=== PATIENT | female | born 1985 | race Caucasian/White ===

== ENCOUNTER 2025-01-31 18:47 | Observation (INO) ==
[2025-01-31] MEDS: MoRPHine SULFATE 2 MG/ML CARP IV STA (19:34)
[2025-01-31] MEDS: SODIUM CHLORIDE 0.9% 1,000 ML IV ONE ×2 (19:35→23:36)
[2025-01-31] MEDS: ONDANSETRON INJ 2 MG/ML 2 ML VIAL IV STA ×2 (19:35→23:35)
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
[2025-01-31 20:00] LABS: Appearance Urine Clear (Clear); Bilirubin Urine Negative (Negative); Blood Urine Negative (Negative); Color Urine Yellow; Glucose Urine UA Negative (Negative); Ketones Urine Negative (Negative); Leukocyte Esterase Urine Negative (Negative); Nitrite Urine Negative (Negative); Protein Urine Negative (Negative); Specific Gravity Urine 1.005 (1.000-1.030); Urobilinogen Urine Negative (Negative)
[2025-01-31 20:03] LABS: Basophils # (auto) 0.07 K/uL (0.00-0.20); Basophils % (auto) 0.7 %; Hemoglobin 13.4 g/dl (12.0-16.0); Immature Granulocytes # (auto) 0.04 K/uL (0.01-0.20); Immature Granulocytes % (auto) 0.4 %; Lymphocytes # (auto) 3.16 K/uL (1.20-3.40); Lymphocytes % (auto) 31.8 %; Mean Corpuscular Hemoglobin 30.6 pg (25.0-34.0); Mean Corpuscular Hgb Conc 33.5 g/dL (32.0-36.0); Mean Corpuscular Volume 91.3 fL (80.0-100.0); Mean Platelet Volume 9.9 fL (9.4-12.4); Monocytes # (auto) 0.51 K/uL (0.11-0.59); Monocytes % (auto) 5.1 %; Neutrophils # (auto) 5.87 K/uL (1.40-6.50); Platelet Count 253 K/uL (130-400); RDW Coefficient of Variation 12.1 % (11.5-14.5); RDW Standard Deviation 40.2 fL (36.4-46.3); Red Blood Count 4.38 M/uL (4.20-5.40); White Blood Count 9.95 K/ul (4.8-10.8)
[2025-01-31 20:21] LABS: Albumin Globulin Ratio 1.9 (0.9-2); Albumin Level 4.9 gm/dl (3.4-5.0); BUN Creatinine Ratio 13.4 (10-20); Bilirubin,Total 0.2 mg/dl (0.2-1.0); Creatinine Clr Calc Pharmacy 120.9 ml/min; Globulin 2.6 gm/dl (2.5-4.0); Potassium 3.3 mmol/L (3.5-5.1); Total Protein 7.5 gm/dl (6.0-8.3)
[2025-01-31 20:29] LABS: Pregnancy Test, Serum Negative (Negative)
[2025-01-31] MEDS: OPTIRAY 320 100ml IV ONE (20:36)
--- NOTE | 2025-01-31 23:08 | CT Scan Report ---
Exam(s): CT ABDOMEN + PELVIS With Contrast IV Amt: 90ml EXAM: CT Abdomen and Pelvis With Intravenous Contrast CLINICAL HISTORY: Reason for exam: RLQ abd pain. TECHNIQUE: Axial computed tomography images of the abdomen and pelvis with intravenous contrast. CTDI is 20.51 mGy and DLP is 1028.93 mGy-cm. Automated exposure control was utilized for the study. A dose lowering technique was utilized adhering to the principles of ALARA. CONTRAST: Patient received 90ml of IV contrast COMPARISON: No relevant prior studies available. FINDINGS: ABDOMEN: Liver: Unremarkable. No mass. Gallbladder and bile ducts: Cholecystectomy. No ductal dilation. Pancreas: Unremarkable. No mass. No ductal dilation. Spleen: Unremarkable. No splenomegaly. Adrenals: Unremarkable. No mass. Kidneys and ureters: Unremarkable. No solid mass. No hydronephrosis. Stomach and bowel: Unremarkable. No obstruction. No mucosal thickening. PELVIS: Appendix: The appendix is normal. Bladder: Unremarkable. No mass. Reproductive: Hysterectomy. ABDOMEN and PELVIS: Intraperitoneal space: Unremarkable. No free air. No significant fluid collection. Bones/joints: No acute findings. Soft tissues: Unremarkable. Vasculature: Unremarkable. No abdominal aortic aneurysm. Lymph nodes: Unremarkable. No enlarged lymph nodes. IMPRESSION: No acute findings in the abdomen or pelvis. Electronically signed by: Guy Jacobs MD 01/31/25 23:07 PM
[2025-01-31] MEDS: ACETAMINOPHEN 1,000 MG/100 ML VIAL IV STA (23:35)
[2025-02-01] MEDS: PROCHLORPERAZINE 1 ML IV ONE (01:33)
[2025-02-01] MEDS: diphenhydrAMINE 50 MG/ML VIAL IV STA (01:33)
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
--- NOTE | 2025-02-01 03:13 | Ultrasound Report ---
EXAM: US pelvic complete CLINICAL HISTORY: RLQ pain; r/o ovarian etiology TECHNIQUE: Static ultrasound images and cine loops of pelvis with Grayscale and Doppler were submitted for review. COMPARISON: none FINDINGS: Post hysterectomy status. Right ovary is within normal limits in size, measuring 2.7x1.5x1.2cm, with normal blood flow Left ovary is within normal limits in size , measuring 2.7x1.7x2.2cm, with normal blood flow. There is no free fluid in the cul-de-sac. A blind end tubular structure (14.5mm in diameter ) with mucosal thickening(maximum thickness-6mm) and significant adjacent fat inflammation seen in right lower quadrant. IMPRESSION: 1. A blind end tubular structure with mucosal thickening and significant adjacent fat inflammation seen in right lower quadrant- likely Acute appendicitis. Advised CT abdomen-pelvis correlation. Electronically signed by Herb Bains 02-01-2025 02:06 AM
[2025-02-01] MEDS: LACTATED RINGER'S 1,000 ML IV SCH ×2 (03:24→11:24)
[2025-02-01] MEDS: POTASSIUM CHLORIDE 20 MEQ/15 ML UDC PO STA (03:29)
[2025-02-01] MEDS: KETOROLAC TROMETHAMINE 15 MG/ML VIAL IV PRN (04:48)
[2025-02-01] MEDS: ONDANSETRON INJ 2 MG/ML 2 ML VIAL IV PRN ×3 (04:49→12:48)
[2025-02-01] MEDS: RIZATRIPTAN BENZOATE 10 MG TAB PO PRN (05:20)
[2025-02-01] MEDS: AMPICILLIN/SULBACTAM SOD 3,000 MG/100 ML BAG IV SCH (05:21)
[2025-02-01] MEDS: D5NSS + 20MEQ KCL 20 MEQ/1,000 ML BAG IV SCH ×2 (08:50→10:31)
[2025-02-01] MEDS ORDERED: LINACLOTIDE 145 MCG CAPSULE PO SCH (09:00)
[2025-02-01] MEDS: ACETAMINOPHEN 325 MG TAB PO PRN (09:12)
[2025-02-01] MEDS: PANTOprazole 40 MG/10 ML SYR IV SCH (09:14)
[2025-02-01] MEDS: TOPIRAMATE 50 MG TAB PO SCH ×2 (09:19→21:02)
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
[2025-02-01] MEDS ORDERED: fentaNYL citrate PF 100 MCG/2 ML VIAL ONE ×2 (11:10→12:14)
[2025-02-01] MEDS ORDERED: MIDAZOLAM HCL 1 MG/ML 2ML VIAL ONE (11:10)
[2025-02-01] MEDS ORDERED: PROPOFOL IV EMULSION 10 MG/ML 20 ML VIAL IV ONE (11:10)
[2025-02-01] MEDS ORDERED: ROCURONIUM BROMIDE 10 MG/ML 5 ML VIAL IV ONE (11:11)
[2025-02-01] MEDS ORDERED: LIDOCAINE 2% 2 ML VIAL/AMP(20MG/ML) INFIL ONE (11:11)
[2025-02-01] MEDS ORDERED: PROMETHAZINE HCL 6.25 MG in SODIUM CHLORIDE 0.9% 50 ML IV PRN (11:26)
[2025-02-01] MEDS ORDERED: ATROPINE SULFATE 0.1 MG/ML 10ML SYR IV PRN (11:26)
[2025-02-01] MEDS ORDERED: HYDROmorphone INJ 1 MG/ML SYRINGE IV PRN (11:26)
[2025-02-01] MEDS ORDERED: ePHEDrine sulfate 50 MG/ML AMP IV PRN (11:26)
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
[2025-02-01] MEDS ORDERED: SUGAMMADEX SODIUM 200 MG/2 ML VIAL IV ONE ×3 (11:39→12:37)
[2025-02-01] MEDS ORDERED: ACETAMINOPHEN 1000 MG/100 ML IV IV ONE (11:39)
[2025-02-01] MEDS: ceFAZolin 2000MG 2,000 MG/15 ML SYR IV ONE (11:45)
[2025-02-01] MEDS ORDERED: DROPERIDOL 5 MG/2 ML VIAL ONE (11:57)
[2025-02-01] MEDS ORDERED: diphenhydrAMINE 50 MG/ML VIAL ONE (11:57)
[2025-02-01] MEDS: BUPIVACAINE/EPINEPHRINE 0.5% MPF 1:200,000 30 ML VIAL ONE (12:16)
--- NOTE | 2025-02-01 12:29 | Post Operative Brief Note ---
Immediate Post Op Note Date of Surgery February 01, 2025 Pre & Post Diagnosis Operation Date: 02/01/25 09:35 Pre-Op Diagnosis: Acute Appendicitis Post-Op Diagnosis: Acute Appendicitis I identified the patient and participated in the time-out.: Yes Procedure Operation Date: 02/01/25 09:35 Actual Procedures p Laparoscopic Appendectomy(Not Applicable) - Burak Suarez MD Surgeon Burak Suarez MD Stock Handler ARJUN Raman assisted with tissue retraction, camera op, closure Estimated Blood Loss 5 Findings Consistent with Post-Op Diagnosis acute appendicitis, no perforation
--- NOTE | 2025-02-01 12:30 | Operative Report ---
Post Operative Report Pre & Post Diagnosis Operation Date: 02/01/25 09:35 Pre-Op Diagnosis: Acute Appendicitis Post-Op Diagnosis: Acute Appendicitis I identified the patient and participated in the time-out.: Yes Procedure Operation Date: 02/01/25 09:35 Actual Procedures p Laparoscopic Appendectomy(Not Applicable) - Burak Saurez MD Surgeon Burak Suarez MD Library Acquisitions Technician ARJUN Raman assisted with tissue retraction, camera op, closure Estimated Blood Loss 5 Findings Consistent with Post-Op Diagnosis acute appendicitis, no evidence of perforation Specimens appendix Drains none Anesthesia Type General Complications none Description of Procedure the patient was taken to the operating room, and placed supine on the operating table. A timeout was performed, perioperative antibiotics were administered, SCD boots were placed. After adequate anesthesia and analgesia was obtained, the abdomen was prepped and draped in the normal sterile fashion. A 1 cm incision was made in the supraumbilical region and carried down to the level of the fascia. A trach hook was used to grasp the fascia and elevated and a varies needle was used to enter the abdominal cavity. The abdomen was insufflated to a pressure of 15 mmHg, and a 5 mm trocar was placed in this location. A 5 mm 30 degree laparoscope was placed into the abdominal cavity, and the abdomen was surveyed. The patient was placed in Trendelenburg and slightly to the left. One 5 mm trocar was placed in the right upper quadrant, and one 12 mm trocar was placed in the left lower quadrant under direct visualization. The right colon was i dentified and traced down to the cecum. The appendix was identified and elevated anteriorly and medially. A window was created at the base of the appendix with a [place] dissector. The Endo SHERRI stapler was used to transect the appendix at its base through noninflamed tissue, and subsequently the mesoappendix. The appendix was placed in an Endo Catch bag, and removed via the left lower quadrant port site. Attention was turned to hemostasis, which was excellent. The abdomen was copiously irrigated and suctioned free, and again hemostasis was found to be excellent. All trochars removed under direct visualization. The abdomen was desufflated. The fascia in the 12 mm port site was closed with a 0 Vicryl suture. The skin was closed with a running 4-0 Monocryl subcuticular stitch. Dermabond was applied. The patient tolerated the procedure without complication, and was transferred in stable condition to the PACU. All instrument, needle, and sponge counts were correct at the end of the case. My senior agricultural assistant was necessary throughout the procedure for tissue retraction, possible camera operation, and closure of the wounds. I understand that section 1842(b)(7)(D) of the Social Security act generally prohibits Medicare physician fee schedule payment for the services of assistants at surgery in teaching hospitals when qualified residents are available to furnish such services. I certify that the services for which payment is claimed were medically necessary and that no qualified resident was available to perform the services. I further understand that these services are subject to postpayment review by the Medicare carrier. I attest to the content of the Intraoperative Record and any orders documented therein. Any exceptions are noted below.
[2025-02-01] MEDS: fentaNYL citrate PF 100 MCG/2 ML VIAL IV PRN (13:05)
[2025-02-01] MEDS ORDERED: MoRPHine SULFATE 2 MG/ML CARP IV PRN ×2 (13:41)
[2025-02-01] MEDS: ceFAZolin 2,000 MG/15 ML IV PUSH IV ONE (14:09)
--- NOTE | 2025-02-01 14:57 | Hospitalist Progress Note ---
Date of Service February 01, 2025 Assessment & Plan (1) Intractable vomiting with nausea: Plan: Due to acute appendicitis. Much improved after surgery. Zofran as needed (2) Acute appendicitis: Plan: Present on admission. Appreciate general surgery consultation recommendations. She underwent laparoscopic appendectomy today, February 01. Local wound care Plan Hopeful discharge to home tomorrow, February 02 Admission and Anticipated Discharge Date Admission Date: February 01, 2025 Subjective The patient is seen postoperatively after laparoscopic appendectomy. She is alert and oriented with stable vital signs. Family is in attendance. Review of Systems 2 Review of Systems: Constitutionalno fever or chills ENTno blurred vision, no double vision, no epistaxis, no sore throat Respiratoryno cough, no wheezing, no shortness of breath Cardiacno palpitations, no chest pain, no syncope Martin nausea, vomiting, diarrhea, melena, hematochezia. Mild discomfort at surgery site GUno urinary retention, no urinary incontinence, no dysuria, no hematuria Musculoskeletalno joint pain, no muscle tenderness Skinno bruising, no rashes, no pruritus Neurono isolated weakness, no paresthesia, no weakness Psychno depression, no anxiety Physical Exam 2 Physical Exam: General-alert and oriented x3, no fever, no chills HEENT-head atraumatic and normocephalic, pupils equal and reactive to light, extraocular muscles intact Neck-no lymphadenopathy or thyromegaly, trachea midline Chest-clear to auscultation. No rales, wheezing or rhonchi Cardiac-regular rate and rhythm, normal S1 and S2 Abdomen-normal bowel sounds, no hepatosplenomegaly. Mild tenderness to palpation at laparoscopic surgery sites Extremities-no cyanosis, clubbing, or edema Neuro-cranial nerves II through XII intact, motor and sensory function within normal limits, strength symmetrical, no focal deficits Psych-normal affect, normal mood Results & Data Results & Data Vital Signs (Past 12 Hours) Vital Signs Temp Pulse Pulse Resp BP BP Pulse Ox 02/01/25 14:42 36.7 C 74 17 112/78 100 02/01/25 14:11 36.6 C 68 16 108/75 99 02/01/25 13:41 36.7 C 71 16 105/71 98 02/01/25 13:20 36.3 C L 75 16 111/75 100 02/01/25 13:10 75 14 110/74 100 02/01/25 13:00 81 16 113/68 99 02/01/25 12:50 93 H 18 111/59 L 99 02/01/25 12:40 36.3 C L 102 H 18 113/66 100 02/01/25 11:12 36.8 C 78 20 119/80 99 02/01/25 07:11 36.6 C 73 16 96/57 L 98 O2 Del Method O2 Flow Rate 02/01/25 14:42 Room Air 02/01/25 14:11 Room Air 02/01/25 13:41 Room Air 02/01/25 13:20 Room Air 02/01/25 13:10 Room Air 02/01/25 13:00 Room Air 02/01/25 12:50 02/01/25 12:40 Oxymask 6 02/01/25 11:12 Room Air 02/01/25 07:11 Room Air Laboratory Results 01/31/25 19:20 01/31/25 19:20 PG Care Time/CCT Total # of Minutes Spent Total Time Spent with Patient: Total time spent is greater than 50% in coordination of care (as documented) at patient's floor/unit and/or counseling patient: Coding Level of Care Code 54623 SUB INP/OBS CARE 3/50MIN Diagnoses Intractable vomiting with nausea R11.2 Acute appendicitis K35.80
[2025-02-01] MEDS: oxyCODONE/ACETAMINOPHEN 5mg/325mg TAB PO PRN (15:14)
[2025-02-01] MEDS: CYCLOBENZAPRINE HCL 10 MG TAB PO PRN (15:22)
[2025-02-01] MEDS: PROCHLORPERAZINE 5 MG in SYRINGE 4 ML IV PRN (15:45)
--- NOTE | 2025-02-01 16:05 | Anesthesiology Progress Note ---
Date of Service February 01, 2025 Anesthesia Post Procedure Vital Signs Vital Signs: Temp Pulse Pulse Pulse Resp BP BP 02/01/25 15:11 36.7 C 73 16 112/78 02/01/25 14:42 36.7 C 74 17 112/78 02/01/25 14:11 36.6 C 68 16 108/75 02/01/25 13:41 36.7 C 71 16 105/71 02/01/25 13:20 36.3 C L 75 16 111/75 02/01/25 13:10 75 14 110/74 02/01/25 13:00 81 16 113/68 02/01/25 12:50 93 H 18 111/59 L 02/01/25 12:40 36.3 C L 102 H 18 113/66 02/01/25 11:12 36.8 C 78 20 119/80 02/01/25 07:11 36.6 C 73 16 02/01/25 01:57 36.5 C 70 18 02/01/25 01:43 67 18 118/78 02/01/25 00:00 80 18 116/75 01/31/25 23:00 83 18 118/81 01/31/25 21:24 76 16 01/31/25 20:07 80 01/31/25 19:26 01/31/25 19:16 87 12 01/31/25 19:09 36.5 C 91 H 18 126/81 BP Pulse Ox O2 Del Method O2 Flow Rate 02/01/25 15:11 100 Room Air 02/01/25 14:42 100 Room Air 02/01/25 14:11 99 Room Air 02/01/25 13:41 98 Room Air 02/01/25 13:20 100 Room Air 02/01/25 13:10 100 Room Air 02/01/25 13:00 99 Room Air 02/01/25 12:50 99 02/01/25 12:40 100 Oxymask 6 02/01/25 11:12 99 Room Air 02/01/25 07:11 96/57 L 98 Room Air 02/01/25 01:57 99/61 L 99 Room Air 02/01/25 01:43 100 02/01/25 00:00 97 01/31/25 23:00 98 01/31/25 21:24 106/84 100 Room Air 01/31/25 20:07 01/31/25 19:26 97 Room Air 01/31/25 19:16 121/92 100 Room Air 01/31/25 19:09 100 Room Air Pain Intensity Abdomen: Pain Intensity: 2 Transfer of Care Handoff Completed per policy Notes Mental Status: alert / awake / arousable and participated in evaluation Patient Amnestic to Procedure: Yes Nausea / Vomiting: adequately controlled Pain: adequately controlled Airway Patency, RR, SpO2: stable & adequate BP & HR: stable & adequate Hydration State: stable & adequate Anesthetic Complications: no major complications apparent and Pt Satisfied with anesthetic care
[2025-02-02 08:06] LABS: Hematocrit (blood only) 34.6 % (37.0-47.0); Hemoglobin 11.5 g/dl (12.0-16.0); Mean Corpuscular Hemoglobin 30.8 pg (25.0-34.0); Mean Corpuscular Hgb Conc 33.2 g/dL (32.0-36.0); Mean Corpuscular Volume 92.8 fL (80.0-100.0); Mean Platelet Volume 9.6 fL (9.4-12.4); Platelet Count 184 K/uL (130-400); RDW Coefficient of Variation 12.1 % (11.5-14.5); RDW Standard Deviation 41.7 fL (36.4-46.3); Red Blood Count 3.73 M/uL (4.20-5.40); White Blood Count 5.79 K/ul (4.8-10.8)
[2025-02-02 08:38] LABS: Albumin Level 3.7 gm/dl (3.4-5.0); BUN Creatinine Ratio 5.9 (10-20); Bilirubin Direct 0.1 mg/dl (0-0.2); Bilirubin,Total 0.5 mg/dl (0.2-1.0); Calcium 8.2 mg/dl (8.6-10.3); Creatinine Clr Calc Pharmacy 119.1 ml/min; Potassium 3.5 mmol/L (3.5-5.1); Total Protein 5.7 gm/dl (6.0-8.3)
--- NOTE | 2025-02-02 09:44 | Surgery Progress Note ---
Date of Service February 02, 2025 Assessment & Plan (1) Intractable vomiting with nausea: (2) Right sided abdominal pain: (3) Acute appendicitis: Plan: POD # 1 s/p laparoscopic appendectomy avss postop pain controlled mild nausea ambulating and urinating without difficulty Plan: Okay from surgical standpoint for discharge discharge instructions reviewed rx for percocet prn pain work note given 2 week postop visit Discussed with Dr. Suarez who agrees with above. Admission and Anticipated Discharge Date Admission Date: February 01, 2025 Subjective feeling sore, pain controlled mild nausea passing gas no bowel movement urinating without difficulty tolerated clears ambulated hallway last night and this am no fevers, chills, chest pain or shortness of breath preop pain resolved Physical Exam Constitutional: WD/WN, vitals as above cooperative and comfortable; no acute distress and not ill appearing Respiratory: normal respiratory effort; no respiratory distress and no labored breathing Gastrointestinal (Abdomen): Inspection/Auscultation: abdomen normal to inspection and + abdominal surgical incision (c/d/i with dermabond); abdomen not distended Percussion/Palpation: abdomen soft; abdomen nontender, no guarding and abdomen not rigid Skin: no rashes, warm and dry Psychiatric: Orientation: alert and oriented x 3 Results & Data Vital Signs (Past 12 Hours) Vital Signs Temp Pulse Resp BP Pulse Ox O2 Del Method 02/02/25 07:17 36.6 C 76 16 106/77 99 Room Air Laboratory Results 02/02/25 Range/Units 07:33 WBC 5.79 (4.8-10.8) K/ul RBC 3.73 L (4.20-5.40) M/uL Hgb 11.5 L (12.0-16.0) g/dl Hct 34.6 L (37.0-47.0) % MCV 92.8 (80.0-100.0) fL MCH 30.8 (25.0-34.0) pg MCHC 33.2 (32.0-36.0) g/dL RDW Std Deviation 41.7 (36.4-46.3) fL RDW Coeff of Humera 12.1 (11.5-14.5) % Plt Count 184 (130-400) K/uL MPV 9.6 (9.4-12.4) fL Sodium 141 (136-145) mmol/L Potassium 3.5 (3.5-5.1) mmol/L Chloride 112 H (98-107) mmol/L Carbon Dioxide 27 (21-32) mmol/L Anion Gap 2 L (3-11) BUN 4 L (6-23) mg/dl Creatinine 0.68 (0.6-1.2) mg/dl Est Cr Clr Drug Dosing 119.1 ml/min eGFR 114.96 BUN/Creatinine Ratio 5.9 L (10-20) Glucose 83 (70-99(Fasting)) mg/dl Calcium 8.2 L (8.6-10.3) mg/dl Total Bilirubin 0.5 (0.2-1.0) mg/dl Direct Bilirubin 0.1 (0-0.2) mg/dl AST 24 (13-39) U/L ALT 21 (7-52) U/L Alkaline Phosphatase 63 (34-104) U/L Total Protein 5.7 L D (6.0-8.3) gm/dl Albumin 3.7 (3.4-5.0) gm/dl
--- NOTE | 2025-02-02 11:36 | Discharge Summary ---
Discharge Summary Date of Service February 02, 2025 Principal Dx & Hospital Course #1 = Principal Diagnosis (1) Intractable vomiting with nausea: Due to acute appendicitis on admission. Now resolved. (2) Acute appendicitis: Present on admission. Appreciate general surgery consultation recommendations. She underwent laparoscopic appendectomy on February 01. She will follow-up with general surgery as an outpatient Plan Home today, February 02 Admission HPI Per Admitting Provider 39yo female with history of IBS-C on Linzess, RA, FM presenting with abdominal pain, nausea and vomiting. Patient reports developing pain in her right hip over the last couple days, new onset pain in her left hip and lower abdomen with radiation to the back today. She is also had significant nausea with multiple episodes of vomiting. In the ER she is afebrile, hemodynamically stable ER course: Normal saline x 2 L Compazine Zofran x 2 Morphine Benadryl Tylenol Discharge Exam General-alert and oriented x3, no fever, no chills HEENT-head atraumatic and normocephalic, pupils equal and reactive to light, extraocular muscles intact Neck-no lymphadenopathy or thyromegaly, trachea midline Chest-clear to auscultation. No rales, wheezing or rhonchi Cardiac-regular rate and rhythm, normal S1 and S2 Abdomen-normal bowel sounds, no hepatosplenomegaly. Mild tenderness to palpation at laparoscopic surgery sites Extremities-no cyanosis, clubbing, or edema Neuro-cranial nerves II through XII intact, motor and sensory function within normal limits, strength symmetrical, no focal deficits Psych-normal affect, normal mood Discharge Plan Discharge Items Patient Disposition: Home - Self-Care Reason For Visit: INTRACTABLE NAUSEA Discharge Diagnosis: Acute appendicitis Activity: Per Instructions section Activity Comment: Avoid overexertion and heavy lifting until cleared by surgery Non-emergency contact: Primary Care Provider and Surgeon Call non-emergency contact if: your symptoms worsen Follow-up/Referrals: Windy Raman PA-C [Physician Algorithm Developer] - Linda Tuttle D.O. [Primary Care Provider] - Diet: Regular Addtl Attending Provider Instructions: Take Percocet as needed for pain. Follow-up with general surgery as instructed Addtl Host/Hostess Head Provider Instructions: Post-Surgical ~Discharge Instructions Activity Recommendations: - lifting limitation: (20 pounds for 2 weeks), - exercise/sex/sports limit: (nonstrenuous for 2 weeks), - driving or machine use limit: (none for 3 days- 1 week , no longer having pain or taking narcotic pain medication), - Shower/bathe limit: (may shower beginning tomorrow) Diet: - Resume previous diet SPECIAL CARE INSTRUCTIONS: - May shower in 24 hours. Let water run over area and pat dry. - Leave surgical glue on incisions, this will fall off on its own. - Call the surgeon's office with any questions or concerns - - (ex. temperature higher than 101 degrees F, excessive bleeding or pain). MEDICATIONS: - Resume previous medications unless instructed otherwise by your surgeon. - May alternate extra strength Tylenol and Ibuprofen as needed for mild to moderate pain -650 mg Tylenol every 6 hours as needed - Ibuprofen 600 mg every 6 hours as needed (take with food) - Percocet 1 every 6 hours, as needed for severe pain - If alternating Tylenol and ibuprofen as above, and need to take Percocet do not exceed 3,000 mg of Tylenol(Acetaminophen) in 24 hour period. Each tablet of Percocet has 325 mg of Tylenol in it. - May take daily stool softener (Colace or Sennakot) while taking narcotic pain medication to avoid constipation or straining. Drink plenty of water daily. FOLLOW UP VISIT: - If not already scheduled, please call the office to schedule a two week follow-up appointment. Office number Pending Studies at Discharge: Yes (appendix pathology, will be reviewed at postop visit) Stand-Alone Forms: My [facility], Work/School Release, Smoking Cessation Medications and DC Order Prescriptions: New oxycodone-acetaminophen 5-325 mg tablet 1 tab PO Q6H PRN (Reason: pain) Qty: 10 0RF No Action cyclobenzaprine 10 mg tablet 10 mg PO TID PRN (Reason: muscle spasms) multivitamin Tablet 1 tab PO DAILY rizatriptan [Maxalt] 10 mg tablet See Rx Instructions PO .COMPLEX Rx Instructions: take 1 tab at onset of headache; if no relief may repeat 1 tab after at least 2 hrs; max = 3 tabs/24 hr PO topiramate [Topamax] 50 mg tablet 50 - 100 mg PO UD Rx Instructions: 50 mg in AM, 100 mg PM valacyclovir 1 gram tablet 1,000 mg PO BID PRN (Reason: Cold Sores) acetaminophen-codeine 300-30 mg Tablet 1 tab PO Q6H PRN (Reason: Pain) Probiotic 15 billion cell Capsule 1 cap PO QAM Linzess 290 mcg capsule 290 mcg PO QAM Discharge Orders: Discharge Order (Routine); Ordered 02/02/25 Ordered By: Guy Flores Admission Data Admit Date/Time: 02/01/25 08:26 Attending Provider: Guy Flores Admit Provider: Michelle Erickson Primary Care Provider: Linda Tuttle Other Providers: Michelle Erickson; Burak Suarez Hospital Stay Data Consultations 02/01/25 01:31 ED Decision to Admit Stat 02/01/25 03:04 Consult General Surgery Routine Procedures Performed Operation Date: 02/01/25 09:35 Actual Procedures p Laparoscopic Appendectomy(Not Applicable) - Burak Suarez MD Diagnostic Imagining Performed 01/31/25 19:24 CT abd pelvis IV con only Stat 01/31/25 23:26 US pelvic complete Stat US transvaginal Stat Pending Results Patient Have Any Pending Studies at Discharge: Yes (appendix pathology, will be reviewed at postop visit) Discharge Instructions Given to Patient (Per Discharging Provider) Take Percocet as needed for pain. Follow-up with general surgery as instructed Total Time Total Time Spent Total Time Spent (In Minutes): 45 minutes Coding Level of Care Code 66492 INP/OBS DISCH >30 MIN Diagnoses Intractable vomiting with nausea R11.2 Acute appendicitis K35.80
[2025-02-02] MEDS: diphenhydrAMINE 50 MG/ML VIAL IV STA (12:51)
--- NOTE | 2025-02-02 13:16 | Communication Note ---
Date of Service: February 02, 2025 Left parotid gland swelling started while she was eating before discharge. It appears she has developed some obstruction of the left parotid gland duct. She was instructed to apply warm compresses until this resolves. She will be seeing her PCP early next week who can refer her to an ENT specialist if needed at that time.
[2025-02-02] MEDS: methylPREDNISolone 125 MG/2 ML VIAL IV STA (14:10)
--- NOTE | 2025-02-02 15:48 | Communication Note ---
Date of Service: February 02, 2025 Continued left parotid swelling. The patient is anxious about going home with this acute problem. Discharge has been canceled. ENT consult has been request ed. Head and neck CT scan ordered
--- NOTE | 2025-02-02 15:55 | Hospitalist Progress Note ---
Date of Service February 02, 2025 Assessment & Plan (1) Intractable vomiting with nausea: Plan: Due to acute appendicitis on admission. Now resolved. (2) Acute appendicitis: Plan: Present on admission. Appreciate general surgery consultation recommendations. She underwent laparoscopic appendectomy on February 01. Doing well. She will follow-up with general surgery as an outpatient (3) Parotid duct obstruction: Plan: Apparent left parotid duct obstruction developed prior to discharge today, discharge was canceled February 02. Discharge was canceled because the patient is hesitant to go home. ENT consultation has been requested. Will obtain CT scanning of the area. Warm compresses for now. Plan Home hopefully tomorrow, February 03 Admission and Anticipated Discharge Date Admission Date: February 01, 2025 Subjective Alert and oriented. Unfortunately she developed a left parotid gland swelling while she was eating prior to discharge. She has never had this occurrence before and appears to have developed obstruction of the left parotid gland duct. No other symptoms. She is hesitant to go home. ENT consultation has been requested. CT scan has been ordered. Warm compresses ordered. She underwent laparoscopic appendectomy yesterday, February 01, without incident. Appreciate general surgery assistance and input. Review of Systems 2 Review of Systems: Constitutionalno fever or chills ENTno blurred vision, no double vision, no epistaxis, no sore throat. Swollen left parotid gland with mild tenderness to palpation. No overlying erythema Respiratoryno cough, no wheezing, no shortness of breath Cardiacno palpitations, no chest pain, no syncope Martin nausea, vomiting, diarrhea, melena, hematochezia. Mild discomfort at surgery site GUno urinary retention, no urinary incontinence, no dysuria, no hematuria Musculoskeletalno joint pain, no muscle tenderness Skinno bruising, no rashes, no pruritus Neurono isolated weakness, no paresthesia, no weakness Psychno depression, no anxiety Physical Exam 2 Physical Exam: General-alert and oriented x3, no fever, no chills HEENT-head atraumatic and normocephalic, pupils equal and reactive to light, extraocular muscles intact. Slightly swollen left parotid gland with mild tenderness to palpation. No overlying erythema. Mild tenderness Neck-no lymphadenopathy or thyromegaly, trachea midline Chest-clear to auscultation. No rales, wheezing or rhonchi Cardiac-regular rate and rhythm, normal S1 and S2 Abdomen-normal bowel sounds, no hepatosplenomegaly. Mild tenderness to palpation at laparoscopic surgery sites Extremities-no cyanosis, clubbing, or edema Neuro-cranial nerves II through XII intact, motor and sensory function within normal limits, strength symmetrical, no focal deficits Psych-normal affect, normal mood Results & Data Results & Data Vital Signs (Past 12 Hours) Vital Signs Temp Pulse Resp BP Pulse Ox O2 Del Method 02/02/25 12:32 36.6 C 78 16 120/81 100 Room Air 02/02/25 07:17 36.6 C 76 16 106/77 99 Room Air Laboratory Results 02/02/25 07:33 02/02/25 07:33 PG Care Time/CCT Total # of Minutes Spent Total Time Spent with Patient: Total time spent is greater than 50% in coordination of care (as documented) at patient's floor/unit and/or counseling patient: Coding Level of Care Code 34371 SUB INP/OBS CARE 3/50MIN Diagnoses Intractable vomiting with nausea R11.2 Acute appendicitis K35.80 Parotid duct obstruction K11.8
[2025-02-02] MEDS: AMPICILLIN/SULBACTAM SOD 3,000 MG/100 ML BAG IV SCH (17:28)
--- NOTE | 2025-02-02 17:36 | CT Scan Report ---
EXAM: CT facial bones wo con CLINICAL HISTORY: suspected left parotid duct occlusion TECHNIQUE: Non-Contrast CT scan of the facial bones was performed, with sagittal and coronal multiplanar reconstruction. One of the following dose reduction techniques were utilized for this exam: Automated exposure control, adjustment of the mA and/or kV according to patient size, and use of iterative reconstruction. DLP: 432.89 mGy-cm. COMPARISON: None. FINDINGS: Sinuses: All paranasal sinuses are clear. No evidence of sinusitis, mucosal thickening, or fluid levels. Osteomeatal complexes are patent. Nasal Cavity: Nasal cavity is unremarkable. No masses, polyps, or deviations. Orbits: Orbits are normal in size and shape. Extraocular muscles and optic nerves are normal. No evidence of orbital masses or proptosis. Maxilla and Mandible: Normal appearance of the maxillary and mandibular bones. No fractures, lytic or sclerotic lesions. Normal dentition without significant periodontal disease. Facial Bones: No fractures or deformities. Zygomatic arches, nasal bones, and other facial structures are intact. Soft Tissues: Soft tissues of the face are normal. No abnormal masses, swelling, or lymphadenopathy. Salivary Glands: The left parotid gland is seen slightly enlarged as compared to the right parotid gland with fatty change. No obstructing left parotid duct dense stones noted. Right parotid, submandibular, and sublingual glands are normal. No evidence of sialadenitis or masses. Temporomandibular Joints (TMJ): Normal appearance of the TMJ bilaterally. No evidence of joint effusion, degenerative changes, or dislocation. IMPRESSION: Enlarged left parotid gland with fatty change. No duct obstruction. Electronically signed by Virgilio An 02-02-2025 5:35 PM
--- NOTE | 2025-02-02 17:47 | CT Scan Report ---
EXAM: CT soft tissue neck wo con CLINICAL HISTORY: Suspected left parotid duct occlusion. TECHNIQUE: CT scan of the neck was performed without administration of intravenous contrast. Sagittal and coronal reconstructions were obtained. One of the following dose reduction techniques were utilized for this exam: Automated exposure control, adjustment of the mA and/or kV according to patient size, and use of iterative reconstruction. DLP: 432.89 mGy-cm, CTDI: 14.3 mGy. COMPARISON: None. FINDINGS: Nasopharynx: Normal size and appearance. No masses. Oropharynx: Normal size and appearance. No masses. Larynx and Hypopharynx: Normal appearance of the laryngeal structures. Vocal cords are normal in appearance and movement. No masses. Thyroid Gland: Normal size and morphology. No nodules or masses. Salivary Glands: The left parotid gland is seen slightly enlarged as compared to the right parotid gland with slight heterogeneous texture and mild stranding of the surrounding fat planes likely representing inflammatory/infectious process for correlation with clinical data. No obstructing left parotid duct dense stones noted. Right parotid, submandibular, and sublingual glands are normal in size and appearance. No evidence of sialadenitis or masses. Lymph Nodes: No pathologically enlarged cervical lymph nodes. Multiple bilateral enlarged non specific upper and lower deep cervical lymph nodes are noted. Vascular Structures: Normal appearance of the carotid arteries, jugular veins, and other major vessels. No evidence of vascular malformations or aneurysms. Soft Tissues: Normal appearance of the soft tissues of the neck. No abnormal masses, swelling, or fluid collections. Bones: Normal appearance of the cervical spine and surrounding bony structures. No fractures, lytic or sclerotic lesions. Airway: Trachea and main bronchi are patent. No evidence of tracheal or bronchial stenosis or masses. IMPRESSION: The left parotid gland is seen slightly enlarged as compared to the right parotid gland with a slight heterogeneous texture and mild stranding of the surrounding fat planes, likely representing an inflammatory/infectious process for correlation with clinical data. No obstructing left parotid duct dense stones noted. Electronically signed by Virgilio An 02-02-2025 5:46 PM
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
--- NOTE | 2025-02-03 05:38 | Surgery Progress Note ---
Date of Service February 03, 2025 Assessment & Plan (1) Intractable vomiting with nausea: (2) Right sided abdominal pain: (3) Acute appendicitis: Plan: POD # 2 s/p laparoscopic appendectomy avss postop pain controlled ambulating and urinating without difficulty Plan: Okay from surgical standpoint for discharge discharge instructions reviewed rx for percocet prn pain work note given 2 week postop visit Admission and Anticipated Discharge Date Admission Date: February 01, 2025 Subjective doing fairly well this morning. Some soreness in her belly. No nausea or vomiting. Continued swelling and pain of her left parotid gland. CT demonstrates parotiditis. She is now on antibiotics. ENT was consulted. Physical Exam Physical Exam: NAD, A&O x 3 AFVSS Abdomen: Soft, NT ND Incisions healing well Results & Data Vital Signs (Past 12 Hours) Vital Signs Temp Pulse Resp BP Pulse Ox O2 Del Method 02/02/25 20:06 36.5 C 74 18 115/79 100 Room Air
[2025-02-03 07:41] LABS: Basophils # (auto) 0.05 K/uL (0.00-0.20); Basophils % (auto) 0.6 %; Eosinophils # (auto) 0.21 K/uL (0.00-0.50); Eosinophils % (auto) 2.4 %; Hematocrit (blood only) 37.2 % (37.0-47.0); Hemoglobin 12.5 g/dl (12.0-16.0); Immature Granulocytes # (auto) 0.02 K/uL (0.01-0.20); Immature Granulocytes % (auto) 0.2 %; Lymphocytes # (auto) 2.22 K/uL (1.20-3.40); Lymphocytes % (auto) 25.8 %; Mean Corpuscular Hemoglobin 30.9 pg (25.0-34.0); Mean Corpuscular Hgb Conc 33.6 g/dL (32.0-36.0); Mean Corpuscular Volume 92.1 fL (80.0-100.0); Mean Platelet Volume 9.8 fL (9.4-12.4); Monocytes # (auto) 0.57 K/uL (0.11-0.59); Monocytes % (auto) 6.6 %; Neutrophils # (auto) 5.53 K/uL (1.40-6.50); Neutrophils % (auto) 64.4 %; Platelet Count 224 K/uL (130-400); RDW Coefficient of Variation 11.9 % (11.5-14.5); RDW Standard Deviation 40.4 fL (36.4-46.3); Red Blood Count 4.04 M/uL (4.20-5.40)
[2025-02-03 09:39] LABS: Calcium 8.8 mg/dl (8.6-10.3); Potassium 3.2 mmol/L (3.5-5.1)
[2025-02-03 09:45] LABS: BUN Creatinine Ratio 6.5 (10-20); Creatinine Clr Calc Pharmacy 105.2 ml/min
[2025-02-03] MEDS: POTASSIUM CHLORIDE CRTAB 20 MEQ TABCR PO ONE (11:19)
[2025-02-03] MEDS: oxyCODONE/ACETAMINOPHEN 5mg/325mg TAB PO PRN (11:37)
--- NOTE | 2025-02-03 11:41 | Discharge Summary ---
Discharge Summary Date of Service February 03, 2025 Principal Dx & Hospital Course #1 = Principal Diagnosis (1) Intractable vomiting with nausea: Due to acute appendicitis on admission. Now resolved. (2) Acute appendicitis: Present on admission. Appreciate general surgery consultation recommendations. She underwent laparoscopic appendectomy on February 01. Doing well. She will follow-up with general surgery as an outpatient (3) Parotid duct obstruction: No parotid duct obstruction seen on CT scans. This appears to be an acute left parotitis. Appreciate ENT consultation recommendations. Treated with in travenous Unasyn while hospitalized. She will continue oral Augmentin at discharge for 1 more week. Continue warm compresses 3 times a day until parotitis has resolved. Plan Home today, February 03 Admission HPI Per Admitting Provider Patient complains of a left facial swelling which started yesterday after she ate. Patient is postop appendectomy and was doing well otherwise. The swelling has increased and there is pain and tenderness asociated with this. Patient has no prior history and prior to hospitalization her diet and intake was normal. She hs a history of arthritis and fibromyalgia and she says she is immunosuppressed. Discharge Exam General-alert and oriented x3, no fever, no chills HEENT-head atraumatic and normocephalic, pupils equal and reactive to light, extraocular muscles intact. Swollen left parotid gland with tenderness to palpation. No overlying erythema. Neckno lymphadenopathy or thyromegaly, trachea midline Chest-clear to auscultation. No rales, wheezing or rhonchi Cardiac-regular rate and rhythm, normal S1 and S2 Abdomen-normal bowel sounds, no hepatosplenomegaly. Mild tenderness to palpation at laparoscopic surgery sites Extremities-no cyanosis, clubbing, or edema Neuro-cranial nerves II through XII intact, motor and sensory function within normal limits, strength symmetrical, no focal deficits Psych-normal affect, normal mood Discharge Plan Discharge Items Patient Disposition: Home - Self-Care Reason For Visit: INTRACTABLE NAUSEA Discharge Diagnosis: Acute appendicitis, acute left parotitis Activity: Per Instructions section Activity Comment: Avoid overexertion and heavy lifting until cleared by surgery Non-emergency contact: Primary Care Provider and Surgeon Call non-emergency contact if: your symptoms worsen Follow-up/Referrals: Windy Raman PA-C [Physician Coating And Baking Operator] - 02/16/25 10:00 am Holsopple,Linda, D.O. [Primary Care Provider] - 02/07/25 11:45 am Diet: Regular Addtl Attending Provider Instructions: Take Percocet as needed for pain. Continue amoxicillin/clavulanate (Augmentin) antibiotic for left parotid gland infection for 1 more week. Apply heat to swollen area left face 3 times a day, 20 minutes each time, until parotitis has resolved. Follow-up with general surgery as instructed Addtl Box Cutter Provider Instructions: Post-Surgical ~Discharge Instructions Activity Recommendations: - lifting limitation: (20 pounds for 2 weeks), - exercise/sex/sports limit: (nonstrenuous for 2 weeks), - driving or machine use limit: (none for 3 days- 1 week , no longer having pain or taking narcotic pain medication), - Shower/bathe limit: (may shower beginning tomorrow) Diet: - Resume previous diet SPECIAL CARE INSTRUCTIONS: - May shower in 24 hours. Let water run over area and pat dry. - Leave surgical glue on incisions, this will fall off on its own. - Call the surgeon's office with any questions or concerns - - (ex. temperature higher than 101 degrees F, excessive bleeding or pain). MEDICATIONS: - Resume previous medications unless instructed otherwise by your surgeon. - May alternate extra strength Tylenol and Ibuprofen as needed for mild to moderate pain -650 mg Tylenol every 6 hours as needed - Ibuprofen 600 mg every 6 hours as needed (take with food) - Percocet 1 every 6 hours, as needed for severe pain - If alternating Tylenol and ibuprofen as above, and need to take Percocet do not exceed 3,000 mg of Tylenol(Acetaminophen) in 24 hour period. Each tablet of Percocet has 325 mg of Tylenol in it. - May take daily stool softener (Colace or Sennakot) while taking narcotic pain medication to avoid constipation or straining. Drink plenty of water daily. FOLLOW UP VISIT: - If not already scheduled, please call the office to schedule a two week follow-up appointment. Office number Pending Studies at Discharge: Yes (appendix pathology, will be reviewed at postop visit) Stand-Alone Forms: [facility] [employer], Work/School Release, Smoking Cessation Medications and DC Order Prescriptions: New oxycodone-acetaminophen 5-325 mg tablet 1 tab PO Q6H PRN (Reason: pain) Qty: 10 0RF amoxicillin-pot clavulanate 875-125 mg tablet 1 tab PO BID Qty: 14 0RF No Action cyclobenzaprine 10 mg tablet 10 mg PO TID PRN (Reason: muscle spasms) multivitamin Tablet 1 tab PO DAILY rizatriptan [Maxalt] 10 mg tablet See Rx Instructions PO .COMPLEX Rx Instructions: take 1 tab at onset of headache; if no relief may repeat 1 tab after at least 2 hrs; max = 3 tabs/24 hr PO topiramate [Topamax] 50 mg tablet 50 - 100 mg PO UD Rx Instructions: 50 mg in AM, 100 mg PM valacyclovir 1 gram tablet 1,000 mg PO BID PRN (Reason: Cold Sores) acetaminophen-codeine 300-30 mg Tablet 1 tab PO Q6H PRN (Reason: Pain) Probiotic 15 billion cell Capsule 1 cap PO QAM Linzess 290 mcg capsule 290 mcg PO QAM Discharge Orders: Discharge Order (Routine); Ordered 02/03/25 Ordered By: Guy Flores Admission Data Admit Date/Time: 02/01/25 08:26 Attending Provider: Guy Flores Admit Provider: Michelle Erickson Primary Care Provider: Linda Tuttle Other Providers: Michelle Erickson; Burak Suarez; Windy Gruber Jesse; Antonio Marcelino; Dave Rodriguez; Yoly Tillman; Ancelmo Young; Noel Shetty; Lai Gorman; Guy Honeycutt; Pardeep Ledezma II; Shanna Walton; Lesa Ledezma Hospital Stay Data Consultations 02/01/25 01:31 ED Decision to Admit Stat 02/01/25 03:04 Consult General Surgery Routine 02/02/25 15:42 Consult Otolaryngology (Head and Neck) Routine Procedures Performed Operation Date: 02/01/25 09:35 Actual Procedures p Laparoscopic Appendectomy(Not Applicable) - Burak Suarez MD Diagnostic Imagining Performed 01/31/25 19:24 CT abd pelvis IV con only Stat 01/31/25 23:26 US pelvic complete Stat US transvaginal Stat 02/02/25 15:44 CT face [CT facial bones wo con] Urgent CT neck soft tissues [CT soft tissue neck wo con] Urgent Pending Results Patient Have Any Pending Studies at Discharge: Yes (appendix pathology, will be reviewed at postop visit) Discharge Instructions Given to Patient (Per Discharging Provider) Take Percocet as needed for pain. Continue amoxicillin/clavulanate (Augmentin) antibiotic for left parotid gland infection for 1 more week. Apply heat to sw ollen area left face 3 times a day, 20 minutes each time, until parotitis has resolved. Follow-up with general surgery as instructed Total Time Total Time Spent Total Time Spent (In Minutes): 45 minutes Coding Level of Care Code 96559 INP/OBS DISCH >30 MIN Diagnoses Intractable vomiting with nausea R11.2 Acute appendicitis K35.80 Parotid duct obstruction K11.8
[2025-02-03 12:54] VITALS: BP 115/77; PULSE 76; RESP 16; TEMP 97.9; O2SAT 100
== END 2025-02-03 14:15 | disposition home or self-care (01) | DRG 399 ==
LOC: 3N 18:47 → ED 18:47 → SUATTDRO 02-01 01:34 → 3N 02-01 01:44